=== PATIENT | female | born 1965 | race Caucasian/White ===

== ENCOUNTER 2024-01-17 18:14 | Emergency (ER) | payer OTHER ==
[~2024-01-17] VITALS: Ht 162.6 cm; Wt 61.2 kg
[~2024-01-17 18:14] MED LIST: ALBU90OI INH; IBUP600 PO; Keflex500 MG PO; METH10 PO; NORT25 PO; Norco 5-325 Ta1 EACH PO; OXYC1TAB11 PO; ZAFI20 PO; Zantac150 MG PO
[2024-01-17 18:29] VITALS: BP 151/91
[2024-01-17 19:16] LABS: BASOPHILS ABSOLUTE AUTO 0.07 K/mm3 (0.00-0.23); BASOPHILS PERCENT AUTO 1 % (0-2); EOSINOPHILS ABSOLUTE AUTO 0.32 K/mm3 (0.00-0.68); EOSINOPHILS PERCENT AUTO 5 % (0-6); Hematocrit 39.4 % (33.0-51.0); Hemoglobin 13.1 g/dL (11.5-16.0); IMMATURE GRAN ABSOLUTE AUTO 0.01 K/mm3 (0.00-0.10); IMMATURE GRAN PERCENT AUTO 0 % (0-1); LYMPHOCYTES ABSOLUTE AUTO 2.61 K/mm3 (0.84-5.20); LYMPHOCYTES PERCENT AUTO 39 % (21-46); MONOCYTES ABSOLUTE AUTO 0.55 K/mm3 (0.16-1.47); MONOCYTES PERCENT AUTO 8 % (4-13); Mean Corpuscular HGB 31.1 pg (26.0-34.0); Mean Corpuscular HGB Conc 33.2 g/dL (31.5-36.5); Mean Corpuscular Volume 94 fL (80-100); NEUTROPHILS ABSOLUTE AUTO 3.17 K/mm3 (1.96-9.15); NEUTROPHILS PERCENT AUTO 47 % (41-73); Platelet Count 241 K/mm3 (150-400); RDW Coefficient Variation 13.1 % (11.7-14.2); RDW Standard Deviation 44.8 fL (35.1-46.3); Red Blood Cell Count 4.21 M/mm3 (3.80-5.20); White Blood Cell Count 6.73 K/mm3 (4.00-11.30)
[2024-01-17 19:43] LABS: Albumin, Blood 3.7 g/dL (3.4-5.0); Bilirubin, Total 0.3 mg/dL (0.1-1.0); Bun/Creatinine Ratio 16.9 (12.0-20.0); Creatinine, Blood 1.18 mg/dL (0.40-1.00); Globulin, Blood 3.7 g/dL (2.2-4.0); Potassium, Blood 4.1 mmol/L (3.5-5.5); Total Protein, Blood 7.4 g/dL (6.4-8.2)
== END 2024-01-17 19:42 | disposition left against medical advice (07) ==
LOC: ER 18:14
PROVIDERS: Student in an Organized Health Care Education/Training Program
DX: R10.9 Unspecified abdominal pain (principal); R30.0 Dysuria; Z53.29 Procedure and treatment not carried out because of patient's decision for other reasons
CPT/HCPCS: 80053; 83690; 85025; 99281

== ENCOUNTER 2024-12-05 06:28 | Emergency (ER) | payer OTHER ==
[~2024-12-05] VITALS: Ht 162.6 cm; Wt 61.2 kg
[2024-12-05] MEDS ORDERED: albuterol sulfate HF (07:06)
[2024-12-05] MEDS ORDERED: FLUTICASONE-SA1 EAC9 INH (07:06)
[2024-12-05] MEDS ORDERED: METH40 PO (07:07)
[2024-12-05] MEDS ORDERED: Ipratropium/Albuterol SulF 2.5-0.5MG/3 ML Amp INH ONE (08:15)
[2024-12-05 09:00] VITALS: BP 118/73
[2024-12-05] MEDS ORDERED: Albuterol 2.5 MG/3 ML VIAL INH SCH (10:35)
[2024-12-05] MEDS ORDERED: ALBU90OI INH (10:35)
[2024-12-05] MEDS ORDERED: PRED20 PO (10:35)
[2024-12-05] MEDS ORDERED: FLUT1DIS5 INH (10:35)
== END 2024-12-05 11:12 | disposition home or self-care (01) ==
LOC: ER 06:28
DX: J45.901 Unspecified asthma with (acute) exacerbation (principal); Z79.899 Other long term (current) drug therapy; F17.210 Nicotine dependence, cigarettes, uncomplicated
CPT/HCPCS: 71046; 93005; 93010; 99285-25; J7512

== ENCOUNTER → 2025-03-02 | Outpatient (CLI) | payer OTHER ==
[~2025-03-02] MED LIST changes: +FLUT1DIS5 INH; +FLUTICASONE-SA1 EAC9 INH; +METH40 PO; +PRED20 PO; +albuterol sulfate HF
[2025-03-05 14:35] LABS: B. BURGDORFERI IGG IMMUNOBLOT Negative (Negative); B. BURGDORFERI IGM IMMUNOBLOT Negative (Negative)
== END ==
LOC: LAB SHORT 19:09 → LAB 19:09
PROVIDERS: Physician Assistant Medical
DX: L03.313 Cellulitis of chest wall (principal)
CPT/HCPCS: 86617